=== PATIENT | male | born 1990 | race Caucasian/White ===

== ENCOUNTER → 2018-07-13 | Outpatient (CLI) | payer BC ==
[~2018-07-13] MED LIST: AMOXIL250 M1 PO; ROBITUSSIN AC 110 ML PO; TYLENOL W/CODEI1 TA2 PO
--- NOTE | ~2018-07-13 | EKG ---
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
== END | disposition home or self-care (01) ==
LOC: CARD 11:56
DX: Z51.81 Encounter for therapeutic drug level monitoring (principal); Z79.899 Other long term (current) drug therapy

== ENCOUNTER 2020-04-14 20:11 | Emergency (ER) | payer SELFPAY ==
[~2020-04-14] VITALS: Ht 167.6 cm; Wt 61.2 kg
[2020-04-14 20:19] VITALS: BP 135/88
[2020-04-14] MEDS ORDERED: MEDROL DOSEPAK4 MG PO (21:13)
== END 2020-04-14 21:33 | disposition home or self-care (01) ==
LOC: ED 20:11
DX: T63.441A Toxic effect of venom of bees, accidental (unintentional), initial encounter (principal); Z91.040 Latex allergy status; Y92.89 Other specified places as the place of occurrence of the external cause

== ENCOUNTER → 2020-04-15 | Outpatient (CLI) | payer SELFPAY ==
[~2020-04-15] MED LIST changes: +MEDROL DOSEPAK4 MG PO
== END | disposition home or self-care (01) ==
LOC: CP 10:02
DX: R06.02 Shortness of breath (principal)

== ENCOUNTER → 2020-04-28 | Outpatient (CLI) | payer SELFPAY | END | disposition home or self-care (01) | LOC: CP 06:57 | DX: R94.5 Abnormal results of liver function studies (principal) ==

== ENCOUNTER → 2020-10-23 | Outpatient (CLI) | payer BC | END | disposition home or self-care (01) | LOC: COVID19 16:03 | PROVIDERS: ATTEND Family Medicine | DX: Z20.822 Contact with and (suspected) exposure to COVID-19 (principal) ==